=== PATIENT | male | born 1975 ===

== ENCOUNTER 2021-04-24 18:02 | Emergency (ER) | payer OTHER ==
[~2021-04-24] VITALS: Ht 182.9 cm; Wt 139.7 kg
[2021-04-24] MEDS ORDERED: cefTRIAXone SOD 1,000 MG VL IM ONE (20:00)
[2021-04-24 20:50] VITALS: BP 148/82
== END 2021-04-24 20:53 | disposition home or self-care (01) ==
LOC: ER 18:02
DX: L03.115 Cellulitis of right lower limb (principal); E66.9 Obesity, unspecified; Z68.41 Body mass index [BMI] 40.0-44.9, adult
CPT/HCPCS: 96372; 99283; J0696